=== PATIENT | male | born 1955 | race Caucasian/White ===

== ENCOUNTER 2019-10-03 04:31 | Emergency (ER) | payer MEDICARE ==
[2019-10-03] MEDS ORDERED: Ketorolac Tromethamine 30 MG/ML VIAL ONE (04:39)
[2019-10-03] MEDS ORDERED: Morphine 4 MG/ML VIAL ONE ×3 (04:39→05:25)
[2019-10-03] MEDS ORDERED: Ondansetron PF 4 MG/2 ML Vial ONE ×2 (04:39→04:42)
[2019-10-03 04:49] LABS: #Basophils 0.1 thou/uL (0.0-0.2); #Eosinphils 0.1 thou/uL (0.0-0.7); #Lymphocytes 3.8 thou/uL (1.20-3.40); #Monocytes 0.7 thou/uL (0.11-0.59); #Neutrophils 3.6 thou/uL (1.40-6.50); %Basophils 1.3 % (0.0-1.0); %Eosinophils 1.5 % (0.0-10.0); %Lymphocytes 45.6 % (21.0-51.0); %Monocytes 8.3 % (0.0-10.0); %Neutrophils 43.3 % (42.0-75.0); Hemoglobin 15.2 g/dL (14.0-18.0); Mean Corpuscular HGB CONC 34.1 g/dL (32.0-36.0); Mean Corpuscular Hemoglobin 30.9 pg (27.0-31.0); Mean Corpuscular Volume 90.8 fL (78.0-98.0); Mean Platelet Volume 8.5 fL (7.4-10.4); Platelet Count 208 thou/uL (130-400); RBC Distribution Width 12.1 % (11.5-14.5); Red Blood Cell (RBC) Count 4.93 mill/uL (4.70-6.10); White Blood Cell (WBC) Count 8.3 thou/uL (4.8-10.8)
[2019-10-03 05:16] LABS: ALT (SGPT) 20 U/L (8-55); AST (SGOT) 16 U/L (5-34); Albumin 4.5 g/dL (3.4-4.8); Alkaline Phosphatase 54 U/L (40-110); Anion Gap 15 mmol/L (10-20); BUN (Urea Nitrogen) 18 mg/dL (8.4-25.7); Bilirubin, Total 1.1 mg/dL (0.2-1.2); Calc. Creatinine Clearance 0 mL/min (70-130); Calcium 9.7 mg/dL (7.8-10.44); Carbon Dioxide 23 mmol/L (23-31); Chloride 104 mmol/L (98-107); Estimated GFR-MDRD 64; Globulin 2.4 g/dL (2.4-3.5); Glucose 149 mg/dL (80-115); Potassium 3.8 mmol/L (3.5-5.1); Protein, Total 6.9 g/dL (5.8-8.1); Sodium 138 mmol/L (136-145)
[2019-10-03] MEDS ORDERED: HYDROcodone/Acetaminophen 5/325 mg Tablet ONE (06:18)
[2019-10-03] MEDS ORDERED: Promethazine HCl 25 MG/ML VIAL ONE (06:18)
--- NOTE | 2019-10-03 06:39 | CT ---
CT OF THE ABDOMEN AND PELVIS WITHOUT IV CONTRAST: Date: 10/03/2019 INDICATION: History of right-sided flank pain. FINDINGS: There is mild right hydronephrosis. There is a 2.5 mm stone at the right UVJ. There is a 2.8 mm stone seen within the left mid kidney. There is an exophytic hyperdense lesion involving the inferior pole of the right kidney measuring 2.0 cm on image 42 of series 2. This involves the inferior pole of the right kidney. Calcified granuloma seen involving the spleen. There is a tiny hypodensity within the left and right hepatic lobes suspicious for tiny cysts. There is a calcified granuloma in the left lower lung lobe. Unopacified pancreas and adrenal glands are within normal limits. There are moderate calcifications i nvolving the abdominal and pelvic vasculature. The appendix is surgically absent. There is scattered colonic diverticula. The bladder is decompressed. Small bowel is of normal caliber. There is scattered degenerative and osteoarthritic change. IMPRESSION: 1. 2.5 mm stone at the right UVJ causing mild right hydronephrosis. 2. Left nephrolithiasis. 3. Exophytic hyperdense lesion involving inferior pole of right kidney. Nonemergent follow-up renal ultrasound is recommended for additional characterization. 4. Colonic diverticulosis. 5. Findings of prior granulomatous disease. 6. Other chronic findings as above. POS: BH
[2019-10-03 06:46] LABS: Bilirubin Negative (Negative); Blood, Urine Trace (Negative); Clarity Clear (Clear); Glucose, Urine (Dipstick) Normal (Negative); Leukocyte Negative Leu/uL (Negative); Nitrite Negative (Negative); Protein, Urine (Dipstick) 70 mg/dL (Neg-Trace); Squamous Epithelial None Seen HPF (0-3); WBC/HPF 0-3 HPF (0-3)
[2019-10-03 06:55] LABS: Bacteria/HPF 1+ HPF (None Seen)
== END 2019-10-03 07:00 | disposition home or self-care (01) ==
LOC: ERS 04:31
DX: N13.2 Hydronephrosis with renal and ureteral calculous obstruction (principal); I10 Essential (primary) hypertension; K21.9 Gastro-esophageal reflux disease without esophagitis; F17.210 Nicotine dependence, cigarettes, uncomplicated; Z79.899 Other long term (current) drug therapy
CPT/HCPCS: 74176; 80053; 81003; 81015; 85025; 96361; 96374; 96375; 96376; J1885; J2270; J2405; J2550